=== PATIENT | male | born 1960 | race Caucasian/White ===

== ENCOUNTER 2023-03-25 07:35 | Observation (INO) ==
--- NOTE | 2023-02-26 13:59 | PAT Medication Instructions ---
Medication Instructions Date of Service February 26, 2023 Home Medications clonazepam 2 mg tablet 2 mg PO QPM gabapentin 300 mg capsule 600 mg PO BID lisinopril 10 mg tablet 10 mg PO QAM magnesium oxide 420 mg tablet 420 mg PO Q3D multivitamin 1 tab PO QAM pantoprazole 40 mg tablet,delayed release 40 mg PO QAM zinc 50 mg tablet 50 mg PO QAM peg 400-propylene glycol (PF) 0.4 %-0.3 % eye drops in a dropperette (Systane (PF)) 1 drp ophthalmic (eye) BID DO NOT take the morning of surgery lisinopril 10 mg tablet 10 mg PO QAM magnesium oxide 420 mg tablet 420 mg PO Q3D multivitamin 1 tab PO QAM zinc 50 mg tablet 50 mg PO QAM Take morning of surgery With a small sip of water, OTHERWISE NOTHING TO EAT OR DRINK AFTER MIDNIGHT: gabapentin 300 mg capsule 600 mg PO BID pantoprazole 40 mg tablet,delayed release 40 mg PO QAM peg 400-propylene glycol (PF) 0.4 %-0.3 % eye drops in a dropperette (Systane (PF)) 1 drp ophthalmic (eye) BID Take evening before surgery clonazepam 2 mg tablet 2 mg PO QPM gabapentin 300 mg capsule 600 mg PO BID peg 400-propylene glycol (PF) 0.4 %-0.3 % eye drops in a dropperette (Systane (PF)) 1 drp ophthalmic (eye) BID Other Notes If you have any questions please call us at [phone] or [phone] or [phone] or [phone]
--- NOTE | 2023-03-12 12:04 | Anesthesiology Consultation ---
Date of Service March 12, 2023 Assessment & Plan (1) Encounter for pre-operative examination: - Infectious disease screening: Per assessment on 03/12/23: No known infectious disease contacts or current infectious disease symptoms. No noted recent Covid positive test result. - S/P TURP (10/01/22): LMA#5, atraumatic at [facility]. No issues noted per post-op anesthesia progress note. - Outpatient joint assessment: Pt currently scheduled for inpatient pathway. If surgeon requests review for outpatient joint pathway, patient is an acceptable candidate for outpatient joint program from anesthesia standpoint. - PCP note (02/25/23): "Yes" medically cleared for surgery Chart Review Chart Review: Acceptable Risk for Surgery and Patient seen in Pre Admission Testing Teaching & Discussion Pre-Anesthesia Teaching/Discussion Notes: Instructed NPO after midnight before surgery,except medications with 15 cc of water. Medication instructions provided according to the PAT guidelines. History Surgery Operation Date: 03/25/23 07:00 Proposed Procedures p Right Total Knee Arthroplasty(Right) - Cayden Elizondo MD Height/Weight Height: 5 ft 9 in Weight: 116.6 kg Allergies Allergy/AdvReac Type Severity Reaction Status Date / Time fentanyl [From Duragesic] Allergy Unknown Vomiting Verified 02/25/23 15:27 aspirin AdvReac Unknown History Verified 03/12/23 12:05 bariatric surgery codeine AdvReac Unknown Vomiting Verified 02/25/23 15:27 oxycodone [From OxyContin] AdvReac Unknown Vomiting Verified 02/25/23 15:27 Medications Home Medications Medication Instructions Recorded Confirmed Last Taken clonazepam 2 mg tablet 2 mg PO QPM 08/17/22 02/25/23 09/30/22 20:00 gabapentin 300 mg capsule 600 mg PO BID 08/17/22 02/25/23 10/01/22 06:30 lisinopril 10 mg tablet 10 mg PO QAM 08/17/22 02/25/23 10/01/22 06:30 magnesium oxide 420 mg tablet 420 mg PO Q3D 08/17/22 02/25/23 09/23/22 multivitamin 1 tab PO QAM 08/17/22 02/25/23 09/30/22 08:00 pantoprazole 40 mg tablet,delayed 40 mg PO QAM 08/17/22 02/25/23 10/01/22 06:30 release zinc 50 mg tablet 50 mg PO QAM 09/23/22 02/25/23 09/30/22 08:00 peg 400-propylene glycol (PF) 0.4 1 drp ophthalmic (eye) BID 02/25/23 02/25/23 Unknown %-0.3 % eye drops in a dropperette (Systane (PF)) Past Medical History Medical History Cataracts, bilateral Chronic back pain Dry eye GERD (gastroesophageal reflux disease) Hearing deficit bilateral hearing aids History of back injury HTN (hypertension) Hx of multiple pulmonary nodules 2 pulmonary nodules, under surveillace, CT lungs 02/26/23 PH [place] Migraines hx Obesity Osteoarthritis Retained foreign body shrapnel LLE () Exercise / Class Metabolic Activity II 4-5 Yardwork/Stairs/Walk up hill (one FS (no CP, no SOB)) Past Surgical History Surgical History History of carpal tunnel surgery of right wrist History of colonoscopy History of esophagogastroduodenoscopy (EGD) History of right inguinal hernia repair History of sleeve gastrectomy 10/01/2012 Hx of transurethral resection of prostate 09/2022 [place] teeth extracted Past Anesthesia History No Hx of Anesthesia Complications and No Family Hx of Anesthesia Complications History of PONV No Hx of PONV and No Hx of Motion Sickness Social History Smoking Status: Former smoker tobacco type: cigarettes Smoking cigarettes per day: 8-9 cigs/day Do You Dip or Chew Tobacco: No Smoking End Date: Quit 2003/restarted in 2018, attempting to quit Hx Alcohol Use: Yes alcohol intake frequency: holidays/special occasions only Hx Substance Use: Yes substance use type: marijuana (Occasional) Review of Systems Patient denies chest pain, shortness of breath, dyspnea on exertion, fever, chills, cough, wheezing, palpitations. Physical Exam Vital Signs VITALS BP 138/85 P 56 TEMP 97.9 SP02 96%Ra RESP 18 PHYSICAL Full cervical extension range of motion. Full TMJ range of motion. TMD 4 finger breaths Mallampati Score 1 Dentition: full upper denture, partial lower Lungs: clear throughout to auscultation Cardiac: regular rate and rhythm, no murmurs noted Spine: normal Carotid arteries: negative bruit Extremities: no LE edema Lab Results Anesthesia Preop Results Results Anesthesia Widget: WBC 5.33 K/ul (4.8-10.8) 03/12/23 Hgb 13.8 g/dl (14.0-18.0) L 03/12/23 Hct 41.7 % (42.0-52.0) L 03/12/23 Plt 151 K/uL (130-400) 03/12/23 Na 139 mmol/L (136-145) 03/12/23 K 4.4 mmol/L (3.5-5.1) 03/12/23 Cl 105 mmol/L (98-107) 03/12/23 CO2 30 mmol/L (21-32) 03/12/23 BUN 16 mg/dl (6-23) 03/12/23 Creat 0.73 mg/dl (0.6-1.4) 03/12/23 Glucose Level 84 mg/dl (70-99(Fasting)) 03/12/23 PT 10.6 Seconds (9.0-12.0) 03/12/23 PTT 32 Seconds (21-31) H 03/12/23 INR 1.0 (0.9-1.1) 03/12/23 Urine Color Yellow 03/12/23 Urine Appearance Clear (Clear) 03/12/23 Urine pH 7.0 (4.5-7.5) 03/12/23 Urine Specific [place] 1.021 (1.000-1.030) 03/12/23 Urine Protein Negative (Negative) 03/12/23 Urine Glucose (UA) Negative (Negative) 03/12/23 Urine Ketones Negative (Negative) 03/12/23 Urine Blood Negative (Negative) 03/12/23 Urine Nitrite Negative (Negative) 03/12/23 Urine Bilirubin Negative (Negative) 03/12/23 Urine Urobilinogen Negative (Negative) 03/12/23 Urine Leukocyte Esterase Negative (Negative) 03/12/23 Blood Type O Positive 03/12/23 Antibody Screen NEGATIVE 03/12/23 Testing Electrocardiogram Date: 02/25/23 NSR at 70bpm. LAD. Chest X-Ray Date: 09/22/22 Findings: + NAD Other Testing CT chest Date: 02/26/23 Multiple very small (3 mm or less) bilateral pulmonary nodules and a remote granuloma on the left. Calcified coronary artery plaque. "Recommend follow-up with low-dose CT in 12 months"
--- NOTE | 2023-03-12 12:08 | History & Physical Report ---
Date of Service March 12, 2023 Assessment & Plan (1) Osteoarthritis of right knee: Plan: PRE-OP Diagnosis: Right knee osteoarthritis Planned Procedure: Right total knee arthroplasty Plan: Patient is scheduled to undergo this procedure at the [facility] with Dr. Elizondo on , March 25, 2023. Risks and complications of the procedure such as: Infection, bleeding, pain, scarring, nerve blood vessel damage, weakness, wound problems, stiffness, incomplete relief of symptoms, hardware failure, hardware loosening, wear, fracture, tendon or ligament injury, blood clots, embolism, cardiac, stroke and were explained to the patient at his visit today and informed consent for the procedure was obtained. Patient also understands risks of proceeding with surgical intervention during the COVID-19 pandemic. Currently he is asympto matic and states that he has not been in contact with anyone positive for the virus recently. We have obtained preoperative medical clearance from the patient's primary care provider. Patient is scheduled to meet with anesthesia at the hospital this afternoon. While there he will obtain a CBC with differential, complete metabolic panel, PT/INR, blood type and screen, urinalysis, urine culture and sensitivity, EKG and a nasal culture for MRSA. During today's visit we reviewed the total knee packet. I provided the patient with paperwork to obtain obtaining a handicap placard for his vehicle. I provided him with information about lectures offered by [facility] in regards to joint replacement surgery. I provided him with an order to obtain a walker. I recommended that he purchase a shower chair and raised toilet seat. We discussed discharge planning from the hospital. Patient states he will most likely do in-home physical therapy for the first 2 weeks before tr ansitioning to outpatient physical therapy. I advised the patient that he will be provided with a prescription for narcotic pain medication for postoperative pain control. We will have him on aspirin twice daily for the first 30 days postoperatively for blood clot prevention. Patient be scheduled for 2-week postoperative follow-up visit with April 07, 2023. This chart was completed utilizing [employer] voice recognition software. Grammatical errors, random word insertions, pronoun errors, and in complete sentences are an occasional consequence of the system. Any questions or con cerns about the content, text, or information contained within the body of this dictation should be addressed directly to the physician for clarification. History of Present Illness Chief Complaint: Chief Complaint: Right knee pain Primary Care Provider: Marco Pierre MD History of Present Illness (including history relevant to procedure): This 63-year-old male presents to the clinic today for his preoperative history and physical. Patient has a longstanding history of bilateral knee pain with the right being greater than the left. Patient states that he has had arthroscopic surgery on the knee a few years ago for meniscus tear. He states that since that time he has had corticosteroid injections and viscosupplementation without significant relief of symptoms. Patient is an avid berkley and hide current states that he has been unable to do these things over the past 6 months due to the pain that he experiences. He states that at times pain radiates into his back causing him to have significant pain in the lumbar spine. He also states that his gait has been affected and notices that his left knee has been getting a little worse as of late. Due to failing conservative management patient is electing to proceed with surgical invention at this time. Review Of Systems: 12 point review of systems warmed and is unremarkable except for those things stated in the HPI and past medical history. Past Medical History: Problems: High blood pressure Osteoarthritis of knees, bilateral Knee pain Migraine headache Sleep apnea with CPAP use Procedure History Procedure Procedure Date Comments History of knee surgery - left Carpal tunnel release IH - Inguinal hernia - right Gastric sleeve 2012 Allergies and Sensitivities: codeine(Confused) Current Home Meds: (Last Updated 03/12 10:42) HYDROcodone 5/325 as needed when he can't bear it acetaminophen prn calcium carbonate (calcium (as carbonate) 600 mg oral tablet) cholecalciferol (Vitamin D3) every other day clonazePAM 2 mg PO qhs gabapentin lisinopril 5 mg PO Daily magnesium oxide PO Daily multivitamin 1 tab PO Daily pantoprazole PO Daily sodium hyaluronate (Euflexxa 10 mg/mL intra-articular solution) 20 mg intra- articular q7days 6 syringes for B/L knees. Please ship to physician's office: [id number] [place] [address] zinc sulfate (Zinc) and magnesium Allergies Allergy/AdvReac Type Severity Reaction Status Date / Time fentanyl [From Duragesic] Allergy Unknown Vomiting Verified 02/25/23 15:27 aspirin AdvReac Unknown History Verified 03/12/23 12:05 bariatric surgery codeine AdvReac Unknown Vomiting Verified 02/25/23 15:27 oxycodone [From OxyContin] AdvReac Unknown Vomiting Verified 02/25/23 15:27 Home Medications Medication Instructions Recorded Confirmed Type clonazepam 2 mg tablet 2 mg PO QPM 08/17/22 02/25/23 History gabapentin 300 mg capsule 600 mg PO BID 08/17/22 02/25/23 History lisinopril 10 mg tablet 10 mg PO QAM 08/17/22 02/25/23 History magnesium oxide 420 mg tablet 420 mg PO Q3D 08/17/22 02/25/23 History multivitamin 1 tab PO QAM 08/17/22 02/25/23 History pantoprazole 40 mg tablet,delayed 40 mg PO QAM 08/17/22 02/25/23 History release zinc 50 mg tablet 50 mg PO QAM 09/23/22 02/25/23 History peg 400-propylene glycol (PF) 0.4 1 drp ophthalmic (eye) BID 02/25/23 02/25/23 History %-0.3 % eye drops in a dropperette (Systane (PF)) Past Med/Surg History Medical History Cataracts, bilateral Chronic back pain Dry eye GERD (gastroesophageal reflux disease) Hearing deficit bilateral hearing aids History of back injury HTN (hypertension) Hx of multiple pulmonary nodules 2 pulmonary nodules, under surveillace, CT lungs 02/26/23 PH [place] Migraines hx Obesity Osteoarthritis Retained foreign body shrapnel LLE () Surgical History History of carpal tunnel surgery of right wrist History of colonoscopy History of esophagogastroduodenoscopy (EGD) History of right inguinal hernia repair History of sleeve gastrectomy 10/01/2012 Hx of transurethral resection of prostate 09/2022 [place] teeth extracted Social History Smoking Status: Former smoker Tobacco Type: Cigarettes Cigarettes Per Day: 8-9 cigs/day; Second Hand Exposure: Yes (hx); Do You Dip or Chew Tobacco: No; Hx Alcohol Use: Yes Hx Substance Use: Yes Last Used Substance Other:: remote hx-regular use Preferred Language: Irish Communication Ability: Effective Bottom Sprayer Required: No Beliefs That Will Affect Care: None Current Living Situation: Spouse Feels Safe at Home: Yes Assistive Devices: Denture - Upper, Denture - Lower, Glasses and Hearing Aid - Bilateral Review of Systems All systems reviewed & are unremarkable except as noted in Subjective Physical Exam Physical Exam: Physical Exam: (relevant to the procedure, including heart and lung evaluation) General: Alert and oriented x 3 with proper grooming and hygiene Eyes: Pupils are equal and reactive to light with accommodation. Extraocular movements are intact Throat: Posterior oropharynx clear with absence of edema, erythema or exudate. Patient has dentures in the upper palate and a partial in the lower. Cardiac: Regular rate and rhythm with no murmurs or gallops appreciated Lungs: Coarse breath sounds throughout with no wheezing, rales or rhonchi Abdomen: Obese, nondistended, nontender with NABS Extremities: Right knee: Range of motion is from 10 degrees of extension 110 degrees of flexion. There is audible crepitation with passive range of motion. Patient experiences medial joint line tenderness when the knees are palpated in the flexed position. He has visible varus malalignment of the right knee but his left knee appears straight. I was unable to manipulate his patella due to arthritic change within the supplementally. There is no laxity with varus or valgus stressing. AP drawer and Justice test are negative. Patient is neurovascularly intact in both lower extremities. Neuro: Cranial nerves II through XII are intact no motor or sensory deficit Skin: Normal in appearance with no open skin areas or discharge Results & Data Diagnostic Findings Studies (relevant to the procedure): 4 views of thebilateral knees which shows interval joint space loss in the medial compartment, near bone on bone arthritis in the right knee. The left knee shows minimal joint space narrowing. Enthesophyte still noted off the right patella. Compared to films done 1 year ago.
[~2023-03-25 07:35] MED LIST: ACETAMINOPHEN 500 MG TAB PO SCH; CeleBREX 200 MG CAP PO SCH; FAMOTIDINE 20 MG TAB PO SCH; LR 500ML BOLUS, THEN 15ML/HR IV SCH; LR 60ML/HR IV SCH; ROPIVACAINE 0.5% 5 MG/ML 30 ML VIAL ONE; ROPIVACAINE 0.5% HCL/PF 246 MG, Ketorolac (*for OR use only*) 30 MG, EPINEPHrine 30MG/3... INFIL SCH; Scopolamine 1 MG TDSY TD SCH; TRANEXAMIC ACID 1,000 MG **IV Intra-op IV SCH; TRANEXAMIC ACID 1,000 MG **IV Pre-op IV SCH; ceFAZolin 2000MG 2,000 MG/15 ML SYR IV SCH; dexAMETHasone**PF** 10 MG/ML VIAL IV SCH; traMADol HCL 50 MG TABLET PO SCH
[2023-03-25] MEDS ORDERED: MIDAZOLAM HCL 1 MG/ML 2ML VIAL ONE (08:15)
[2023-03-25] MEDS ORDERED: PROPOFOL IV EMULSION 10 MG/ML 20 ML VIAL IV ONE ×2 (08:22→10:22)
[2023-03-25] MEDS ORDERED: LIDOCAINE 2% 2 ML VIAL/AMP(20MG/ML) INFIL ONE ×2 (08:22→11:34)
--- NOTE | 2023-03-25 08:37 | History & Physical Bridge Note ---
Date of Service March 25, 2023 History & Physical Bridge Note I have examined the patient, reviewed the History & Physical and in the interval since the performance of the History & Physical I have noted the following changes of clinical significance: no changes noted
[2023-03-25] MEDS ORDERED: fentaNYL citrate PF 100 MCG/2 ML VIAL IV PRN (08:39)
[2023-03-25] MEDS ORDERED: ePHEDrine sulfate 50 MG/ML AMP IV PRN (08:39)
[2023-03-25] MEDS ORDERED: ONDANSETRON INJ 2 MG/ML 2 ML VIAL IV PRN ×2 (08:39→10:50)
[2023-03-25] MEDS ORDERED: HYDROmorphone INJ 2 MG/ML SYR/VIAL IV PRN (08:39)
[2023-03-25] MEDS ORDERED: ATROPINE SULFATE 0.1 MG/ML 10ML SYR IV PRN (08:39)
[2023-03-25] MEDS ORDERED: ORTHO JOINT ANESTHETIC ONE (08:47)
[2023-03-25] MEDS ORDERED: TAMSULOSIN HCL 0.4 MG CAP PO PRN (10:50)
[2023-03-25] MEDS ORDERED: diphenhydrAMINE 50 MG/ML VIAL IV PRN (10:50)
[2023-03-25] MEDS ORDERED: NALOXONE HCL 0.4 MG/1 ML VIAL/CARP IV PRN (10:50)
[2023-03-25] MEDS ORDERED: MAGNESIUM HYDROXIDE SUSP 30 ML UDC PO PRN (10:50)
[2023-03-25] MEDS ORDERED: METOCLOPRAMIDE HCL INJ 5 MG/ML 2 ML VIAL IV PRN (10:50)
[2023-03-25] MEDS ORDERED: bisacodyL 10 MG SUPP PR PRN (10:50)
[2023-03-25] MEDS ORDERED: HYDROmorphone INJ 0.5 MG/0.5 ML SYR IV PRN (10:50)
--- NOTE | 2023-03-25 10:50 | Operative Report ---
Post Operative Report Pre & Post Diagnosis Operation Date: 03/25/23 09:10 Pre-Op Diagnosis: Right Knee Osteoarthritis Post-Op Diagnosis: Right Knee Osteoarthritis I identified the patient and participated in the time-out.: Yes Procedure Operation Date: 03/25/23 09:10 Actual Procedures p Right Total Knee Arthroplasty(Right) - Cayden Elizondo MD Surgeon Cayden Elizondo MD Leaf Stripper Uriah Trejo PA-Jaerd Estimated Blood Loss 100 Findings Consistent with Post-Op Diagnosis Specimens Right knee bone and soft tissue Description of Procedure I was present during the entire case assisting with positioning, prepping, draping, wound retraction, wound closure, and dressing application. No fellow present. Please see Dr. Elizondo procedure note for specifics of the case. I attest to the content of the Intraoperative Record and any orders documented therein. Any exceptions are noted below.
--- NOTE | 2023-03-25 10:55 | Operative Report ---
Post Operative Report Pre & Post Diagnosis Operation Date: 03/25/23 09:10 Pre-Op Diagnosis: Right Knee Osteoarthritis Post-Op Diagnosis: Right Knee Osteoarthritis I identified the patient and participated in the time-out.: Yes Procedure Operation Date: 03/25/23 09:10 Actual Procedures p Right Total Knee Arthroplasty(Right) - Cayden Elizondo MD Surgeon Cayden Elizondo MD [employer] Lieutenant YESENIA Trejo PA-C. No resident or fellow was available to assist. Estimated Blood Loss 100 Findings Consistent with Post-Op Diagnosis Specimens Right knee bone and soft tissue contents. Anesthesia Type Spinal MAC Complications none Disposition Disposition: Recovery Room Indications 63-year-old male with right knee osteoarthritis refractory to conservative management. X-rays demonstrate joint space narrowing, marginal osteophytes, and subchondral sclerosis. I had a long discussion with him about the risks and benefits of surgery, alternatives to surgery, and expected outcomes. After reviewing all these he elected to proceed. All questions were answered. Informed consent was signed. Description of Procedure Patient was identified in the preoperative holding area where the surgical site, right knee, was marked. Spinal anesthetic was placed by anesthesia. Patient was brought back to the operating room, placed on the operating room table, and IV sedation was administered. A bump was placed underneath the ipsilateral hip. All bony prominences were padded. Perioperative antibiotics and tranexamic acid were administered. Exam under anesthesia was performed. This demonstrated range of motion 0 to 110 degrees, stable to varus and valgus at 0 and 30 degrees. The surgical site was prepped and draped in the normal sterile fashion. Prior to incision a multidisciplinary timeout was called. All in the room were in agreement. We began by exsanguinating the limb with an Esmarch bandage. Tourniquet was inflated to 250 mmHg. A 14 cm long incision was made over the anterior aspect of the knee. I dissected through the subcutaneous tissues to the level of the fascia. Full-thickness flaps were raised above the fascia. A median parapatellar arthrotomy was made. Half the fat pad was excised. A medial release was performed with Bovie electrocautery on the proximal tibia. Synovitis in the knee and suprapatellar pouch was removed. The patella was then everted and held with 2 towel clips. The thickness of the patella was measured at 25 mm. Patellar resection was performed. Caliper showed the patella thickness now to be 15 mm. A size 41 trial was placed and mckeon d a great fit. The 3 drill holes were placed then the trial button was placed. The patellar thickness was now 25 mm which I was very happy with. The patellar trial was then removed, and the knee was flexed up. Retractors were placed to protect the MCL and LCL. Osteophytes were removed from the femoral condyles and intercondylar notch. The ACL and PCL were excised. Intramedullary drill guide was drilled into the femur. Distal femoral cutting guide was placed set at 5 degrees of valgus to resect 10 mm off the distal femur. Distal femoral resection was made without difficulty. The tibia was then exposed. The lateral meniscus was sharply excised. The tibial cutting jig was positioned in line with the tibial shaft in the coronal plane and with 3 degrees of posterior slope in the sagittal plane to resect 5 mm off the more involved compartment. The jig was then pinned in position and the tibial cut was made. We then brought the knee into full extension. Lamina spreaders were placed. The medial meniscus was excised. The extension block was then placed for 5 mm thickness poly. This gave us full extension and excellent stability to varus and valgus stress. Next the extension block was removed, the knee was flexed up, collateral ligaments were protected, and the epicondylar axis and Whitesides line were marked out on the distal femoral cut. Femoral sizing guide was placed. External rotation was set at 5 degrees so that the posterior cut would be parallel with the epicondylar axis and perpendicular with Whitesides line. The patient sized to a size 7 femur. 2 pins were then placed through the jig into the distal femur. The jig was removed and the appropriately sized 4-in-1 cutting jig was placed over the pins, then fixated to the bone using threaded, headed pins. We confirmed that we would not notch the femur with our anterior cut. Our 4 cuts were then made. The cutting jig was removed. The flexion block was then placed with the knee held at 90 degrees. There was excellent stability to varus and valgus at 90 degrees with no gapping medially or laterally. Next the box cutting jig was placed on the distal femur. The box cut was made and the femoral trial was impacted into position. Lug holes were drilled in the distal femur. We then reexposed the tibia. The tibia was sized to a 7 for a fixed-bearing component. The tibial tray with a 5 mm thickness polyethylene liner was placed on the cut tibial surface and the knee was brought through a full range of motion. There was excellent stability to varus valgus stress throughout a full range of motion, which was approximately 0-125 degrees. Bovie electrocautery was used to zulay the tibia at the site where the tibial tray rested in full extension. We then flexed up the knee, removed the polyethylene liner, and pinned the tibial tray into position to match the cautery zulay. The intramedullary drill followed by the keel punch were used to prepare the tibia. Next the trial components were removed. I then injected the posterior capsule and periosteum with the periarticular injection cocktail. The bone cuts were then irrigated and dried while the cement was mixed on the back table. The femoral component was cemented on first. Excess cement was removed. A lap sponge was placed over the femoral component for protection, then the tibia was subluxated anteriorly. The all polyethylene tibial component was then cemented in place. Again excess cement was removed. The knee was brought into full extension and held there until the cement cured. The patella was cemented and clamped. Dilute Betadine solution was then allowed to soak in the knee while the cement cured. Once the cement was fully cured, the knee was irrigated out, the tourniquet was let down and meticulous hemostasis was ensured. The knee was brought through a full range of motion. I was were very happy with the patella tracking and the stability. We then began to close. Interrupted 0 Vicryl suture was used to repair the patellar retinaculum in [id number] fashion. The quadriceps and patellar tendons were run with #1 Vicryl. The deep dermal layer was closed with interrupted 2-0 Vicryl. D ermabond and Zipline was used for the skin, followed by a Silverlon dressing. A compressive Jakob wrap was placed and the knee was placed into a knee immobilizer. Patient's sedation was lifted and was transferred to recovery room in stable condition. Summary of implants: Depuy Attune Posterior Stabilized Cemented Femur, size 7 right Attune All-polyethylene tibial component, posterior stabilized 5 mm thickness, size 7 Attune patella medialized dome, size 41 2 batches of Palacos high viscosity bone cement Postoperative course: Patient will be admitted to the floor for pain control and monitoring. Weightbearing as tolerated with a walker with no knee range of motion for 48 hours. Aspirin for DVT prophylaxis. I attest to the content of the Intraoperative Record and any orders documented therein. Any exceptions are noted below.
--- NOTE | 2023-03-25 11:14 | XRay Report ---
XR knee RT 1 or 2V routine CLINICAL HISTORY: Surgical Post Op TECHNIQUE: 2 views of the right knee were obtained. Comparison: Comparison is made to right knee radiograph 03/12/2023 FINDINGS: Patient is status post total knee arthroplasty with expected postsurgical changes including soft tiss ue swelling and subcutaneous emphysema. No periarticular lucency or hardware fracture is seen. IMPRESSION: Expected postoperative appearance status post placement of total knee arthroplasty. ACT 112: Negative or not required by law. Electronically signed by: Noha Lozano M.D. 03/25/2023 11:13 AM
--- NOTE | 2023-03-25 12:11 | Anesthesiology Progress Note ---
Date of Service March 25, 2023 Anesthesia Post Procedure Vital Signs Vital Signs: Temp Pulse Resp BP BP Pulse Ox O2 Del Method 03/25/23 11:55 55 L 16 126/73 95 Room Air 03/25/23 11:40 49 L 18 142/81 H 94 Room Air 03/25/23 11:25 56 L 16 138/82 95 Room Air 03/25/23 11:10 36.6 C 60 15 100/61 92 Room Air 03/25/23 11:00 57 L 16 95/67 L 99 Room Air 03/25/23 10:50 36.0 C L 54 L 17 92/51 L 98 Oxymask 03/25/23 08:35 Room Air 03/25/23 08:00 36.7 C 66 20 159/105 H 96 Room Air O2 Flow Rate 03/25/23 11:55 03/25/23 11:40 03/25/23 11:25 03/25/23 11:10 03/25/23 11:00 03/25/23 10:50 6 03/25/23 08:35 03/25/23 08:00 Pain Intensity Right Knee: Pain Intensity: 0 Transfer of Care Handoff Completed per policy Notes Mental Status: alert / awake / arousable and participated in evaluation Patient Amnestic to Procedure: Yes Nausea / Vomiting: adequately controlled Pain: adequately controlled Airway Patency, RR, SpO2: stable & adequate BP & HR: stable & adequate Hydration State: stable & adequate Neuraxial Anesthesia: was administered and sensory block is resolving Anesthetic Complications: no major complications apparent and Pt Satisfied with anesthetic care
[2023-03-25] MEDS: SODIUM CHLORIDE 0.9% 1,000 ML IV SCH ×2 (12:51→21:01)
[2023-03-25] MEDS: KETOROLAC TROMETHAMINE 15 MG/ML VIAL IV SCH ×2 (13:36→18:32)
[2023-03-25] MEDS: ACETAMINOPHEN 500 MG TAB PO SCH ×2 (13:38→20:54)
[2023-03-25] MEDS: Scopolamine CHECK PATCH PLACEMENT SCH (16:58)
[2023-03-25] MEDS: ceFAZolin 2000MG 2,000 MG/15 ML SYR IV SCH (16:59)
[2023-03-25] MEDS ORDERED: TRANEXAMIC ACID / 0.7% NACL 1,000 MG/100 ML BAG IV SCH (17:00)
[2023-03-25] MEDS: GABAPENTIN 600 MG TAB PO SCH (20:53)
[2023-03-25] MEDS: DOCUSATE SODIUM 100 MG CAP PO SCH (20:54)
[2023-03-25] MEDS: ARTIFICIAL TEARS OP SCH (20:58)
[2023-03-25] MEDS ORDERED: clonazePAM 1 MG TAB PO SCH (21:00)
[2023-03-25] MEDS ORDERED: SENNA 8.6 MG TAB PO SCH (21:00)
[2023-03-25] MEDS: traMADol HCL 50 MG TABLET PO PRN (23:31)
[2023-03-26] MEDS: ceFAZolin 2000MG 2,000 MG/15 ML SYR IV SCH (01:52)
[2023-03-26] MEDS: KETOROLAC TROMETHAMINE 15 MG/ML VIAL IV SCH ×2 (01:52→07:53)
[2023-03-26] MEDS: ACETAMINOPHEN 500 MG TAB PO SCH (05:03)
[2023-03-26 06:08] LABS: Hematocrit (blood only) 38.2 % (42.0-52.0); Hemoglobin 13.1 g/dl (14.0-18.0); Mean Corpuscular Hgb Conc 34.3 g/dL (32.0-36.0); Mean Corpuscular Volume 84.5 fL (80.0-100.0); Mean Platelet Volume 11.2 fL (9.4-12.4); Platelet Count 159 K/uL (130-400); RDW Coefficient of Variation 12.2 % (11.5-14.5); RDW Standard Deviation 37.3 fL (36.4-46.3); Red Blood Count 4.52 M/uL (4.70-6.10); White Blood Count 13.14 K/ul (4.8-10.8)
[2023-03-26 06:17] LABS: BUN Creatinine Ratio 28.4 (10-20); Calcium 8.6 mg/dl (8.6-10.3); Creatinine Clr Calc Pharmacy 139.3 ml/min; Est GFR (African American) 119.4 ml/min; Potassium 4.3 mmol/L (3.5-5.1)
[2023-03-26] MEDS: Scopolamine CHECK PATCH PLACEMENT SCH ×2 (07:54)
[2023-03-26] MEDS: ARTIFICIAL TEARS OP SCH (07:55)
[2023-03-26] MEDS: GABAPENTIN 600 MG TAB PO SCH (07:58)
[2023-03-26] MEDS ORDERED: dexAMETHasone 4 MG TAB PO SCH (08:00)
[2023-03-26] MEDS: DOCUSATE SODIUM 100 MG CAP PO SCH (08:16)
[2023-03-26] MEDS ORDERED: MULTIVITAMIN TAB PO SCH (09:00)
[2023-03-26] MEDS ORDERED: ZINC SULFATE 220 MG CAPSULE PO SCH (09:00)
[2023-03-26] MEDS ORDERED: PANTOprazole 40 MG TAB PO SCH (09:00)
[2023-03-26] MEDS ORDERED: [UNRECOGNIZED DRUG - OTHER] PO SCH (09:00)
[2023-03-26] MEDS ORDERED: MAGNESIUM OXIDE 400 MG TAB PO SCH (09:00)
[2023-03-26] MEDS ORDERED: NON-FORMULARY MEDICATION (Multivitamin tablet) PO SCH (09:00)
[2023-03-26] MEDS ORDERED: lisinopril 10 MG TAB PO SCH (09:00)
[2023-03-26] MEDS ORDERED: RIVAROXABAN 10 MG TABLET PO SCH (09:00)
[2023-03-26] MEDS: traMADol HCL 50 MG TABLET PO PRN (10:44)
--- NOTE | 2023-03-26 10:46 | Orthopedic Progress Note ---
Date of Service March 26, 2023 Assessment & Plan (1) S/P total knee arthroplasty: Plan: PT/OT Ice with easy wrap DVT prophylaxis with Xarelto and NANCY stockings Pain control with p.o. medication Immobilizer use x 48 hours Weightbearing as tolerated with walker assistance Plan is to discharge home later this morning with in-home physical therapy for the first 2 weeks postoperatively Keep Silverlon dressing in place until follow-up Follow-up at [facility] orthopedics as previously scheduled With questions contact our clinic at [phone] Admission and Anticipated Discharge Date Admission Date: March 25, 2023 Subjective This 63-year-old male is day 1 status post right total knee arthroplasty. Patient states that he is doing very well. He states that his pain is effectively controlled with the p.o. pain medication he was given. He has been up ambulating with physical therapy without significant discomfort. Patient hop es to be discharged home later this morning. He is already established with in- home physical therapy. Currently he denies chest pain, shortness of breath, fever, chills, sweats or numbness or tingling in his right lower extremity. He also has no complaint of nausea, vomiting, difficulty voiding or diarrhea. Review of Systems Review of Systems: All systems reviewed & are unremarkable except as noted in Subjective Physical Exam Physical Exam: Right knee: Outer dressing was removed. Silverlon is clean dry and intact and left in place. Patient is able to perform an active straight leg raise test. He is able to actively dorsi and plantarflex his foot. Active knee range of motion is from 0 degrees of extension to approximately 90 degrees of flexion. There is moderate edema and tenderness to palpation. There is also some noted ecchymosis at the tourniquet site. Otherwise patient is neurovascularly intact. His quad strength is 4-5. Results & Data Vital Signs (Past 12 Hours) Vital Signs Temp Pulse Resp BP Pulse Ox O2 Del Method 03/26/23 07:16 36.3 C L 56 L 16 121/74 95 Room Air 03/26/23 05:00 36.5 C 56 L 18 137/77 94 Room Air 03/26/23 01:29 36.3 C L 54 L 16 134/75 95 Room Air Diagnostic Findings Laboratory Results WBC 13.14 K/ul (4.8-10.8) H 03/26/23 05:19 RBC 4.52 M/uL (4.70-6.10) L 03/26/23 05:19 Hgb 13.1 g/dl (14.0-18.0) L 03/26/23 05:19 Hct 38.2 % (42.0-52.0) L 03/26/23 05:19 MCV 84.5 fL (80.0-100.0) 03/26/23 05:19 MCH 29.0 pg (25.0-34.0) 03/26/23 05:19 MCHC 34.3 g/dL (32.0-36.0) 03/26/23 05:19 RDW Std Deviation 37.3 fL (36.4-46.3) 03/26/23 05:19 RDW Coeff of Brunilda 12.2 % (11.5-14.5) 03/26/23 05:19 Plt Count 159 K/uL (130-400) 03/26/23 05:19 MPV 11.2 fL (9.4-12.4) 03/26/23 05:19 Sodium 136 mmol/L (136-145) 03/26/23 05:19 Potassium 4.3 mmol/L (3.5-5.1) 03/26/23 05:19 Chloride 106 mmol/L (98-107) 03/26/23 05:19 Carbon Dioxide 22 mmol/L (21-32) 03/26/23 05:19 Anion Gap 8 (3-11) 03/26/23 05:19 BUN 19 mg/dl (6-23) 03/26/23 05:19 Creatinine 0.67 mg/dl (0.6-1.4) 03/26/23 05:19 Est Cr Clr Drug Dosing 139.3 ml/min 03/26/23 05:19 Est GFR ( Amer) 119.4 ml/min 03/26/23 05:19 Est GFR (Non-Af Amer) 103.0 ml/min 03/26/23 05:19 BUN/Creatinine Ratio 28.4 (10-20) H 03/26/23 05:19 Glucose 105 mg/dl (70-99(Fasting)) H 03/26/23 05:19 Calcium 8.6 mg/dl (8.6-10.3) 03/26/23 05:19 Impressions Knee X-Ray 03/25/23 10:50 XR knee RT 1 or 2V routine CLINICAL HISTORY: Surgical Post Op TECHNIQUE: 2 views of the right knee were obtained. Comparison: Comparison is made to right knee radiograph 03/12/2023 FINDINGS: Patient is status post total knee arthroplasty with expected postsurgical changes including soft tissue swelling and subcutaneous emphysema. No periarticular lucency or hardware fracture is seen. IMPRESSION: Expected postoperative appearance status post placement of total knee arthroplasty. ACT 112: Negative or not required by law. Electronically signed by: Noah Lozano M.D. 03/25/2023 11:13 AM
--- NOTE | 2023-03-26 10:51 | Discharge Summary ---
Date of Service March 26, 2023 Admission HPI Per Admitting Provider History of Present Illness (including history relevant to procedure): This 63-year-old male presents to the clinic today for his preoperative history and physical. Patient has a longstanding history of bilateral knee pain with the right being greater than the left. Patient states that he has had arthroscopic surgery on the knee a few years ago for meniscus tear. He states that since that time he has had corticosteroid injections and viscosupplementation without significant relief of symptoms. Patient is an avid berkley and hide current states that he has been unable to do these things over the past 6 months due to the pain that he experiences. He states that at times pain radiates into his back causing him to have significant pain in the lumbar spine. He also states that his gait has been affected and notices that his left knee has been getting a little worse as of late. Due to failing conservative management patient is electing to proceed with surgical invention at this time. Review Of Systems: 12 point review of systems warmed and is unremarkable except for those things stated in the HPI and past medical history. Past Medical History: Problems: High blood pressure Osteoarthritis of knees, bilateral Knee pain Migraine headache Sleep apnea with CPAP use Procedure History Procedure Procedure Date Comments History of knee surgery - left Carpal tunnel release IH - Inguinal hernia - right Gastric sleeve 2012 Allergies and Sensitivities: codeine(Confused) Current Home Meds: (Last Updated 03/12 10:42) HYDROcodone 5/325 as needed when he can't bear it acetaminophen prn calcium carbonate (calcium (as carbonate) 600 mg oral tablet) cholecalciferol (Vitamin D3) every other day clonazePAM 2 mg PO qhs gabapentin lisinopril 5 mg PO Daily magnesium oxide PO Daily multivitamin 1 tab PO Daily pantoprazole PO Daily sodium hyaluronate (Euflexxa 10 mg/mL intra-articular solution) 20 mg intra- articular q7days 6 syringes for B/L knees. Please ship to physician's office: [address] [place] [id number] zinc sulfate (Zinc) and magnesium Admission Exam Per Admitting Provider Physical Exam: (relevant to the procedure, including heart and lung evaluation) General: Alert and oriented x 3 with proper grooming and hygiene Eyes: Pupils are equal and reactive to light with accommodation. Extraocular movements are intact Throat: Posterior oropharynx clear with absence of edema, erythema or exudate. Patient has dentures in the upper palate and a partial in the lower. Cardiac: Regular rate and rhythm with no murmurs or gallops appreciated Lungs: Coarse breath sounds throughout with no wheezing, rales or rhonchi Abdomen: Obese, nondistended, nontender with NABS Extremities: Right knee: Range of motion is from 10 degrees of extension 110 degrees of flexion. There is audible crepitation with passive range of motion. Patient experiences medial joint line tenderness when the knees are palpated in the flexed position. He has visible varus malalignment of the right knee but his left knee appears straight. I was unable to manipulate his patella due to arthritic change within the supplementally. There is no laxity with varus or valgus stressing. AP drawer and Justice test are negative. Patient is neurovascularly intact in both lower extremities. Neuro: Cranial nerves II through XII are intact no motor or sensory deficit Skin: Normal in appearance with no open skin areas or discharge Principal Diagnosis Right knee osteoarthritis Discharge Exam Right knee: Outer dressing was removed. Silverlon is clean dry and intact and left in place. Patient is able to perform an active straight leg raise test. He is able to actively dorsi and plantarflex his foot. Active knee range of motion is from 0 degrees of extension to approximately 90 degrees of flexion. There is moderate edema and tenderness to palpation. There is also some noted ecchymosis at the tourniquet site. Otherwise patient is neurovascularly intact. His quad strength is 4-5. Discharge Data Allergies Allergy/AdvReac Type Severity Reaction Status Date / Time fentanyl [From Duragesic] Allergy Unknown Vomiting Verified 03/25/23 08:23 [facility] Allergy hives, Verified 03/25/23 08:23 throat swelling aspirin AdvReac Unknown History Verified 03/25/23 08:23 bariatric surgery codeine AdvReac Unknown Vomiting Verified 03/25/23 08:23 oxycodone [From OxyContin] AdvReac Unknown Vomiting Verified 03/25/23 08:23 Procedures Performed Operation Date: 03/25/23 09:10 Actual Procedures p Right Total Knee Arthroplasty(Right) - Cayden Elizondo MD Ordered Studies 03/25/23 05:00 US - OR guided needle placemen Routine Hospital Course (1) S/P total knee arthroplasty: Patient had an uneventful overnight stay following right total knee arthroplasty. He is scheduled to begin physical therapy sometime this weekend at home. He is very pleased with the results of his surgery. PT/OT Ice with easy wrap DVT prophylaxis with Xarelto and NANCY stockings Pain control with p.o. medication Immobilizer use x 48 hours Weightbearing as tolerated with walker assistance Plan is to discharge home later this morning with in-home physical therapy for the first 2 weeks postoperatively Keep Silverlon dressing in place until follow-up Follow-up at [facility] orthopedics as previously scheduled With questions contact our clinic at [phone] Total Time Total Time Spent Total Time Spent (In Minutes): 25 mins Discharge Plan Discharge Items Patient Disposition: Home - Home Health Services Reason For Visit: Right Knee Osteoarthritis Discharge Diagnosis: Right Knee Osteoarthritis Activity: As commented below Lifting: None Bathing: Keep incision dry Bathing Comment: May shower tomorrow Sexual Activity: Wait until after follow-up appointment Exercise/Sports: Wait until after follow-up appointment Weightbearing Comment: as tolerated with walker assistance and immobilizer for first 48 hrs Non-emergency contact: Surgeon Call non-emergency contact if: you have any medication questions, your pain is not controlled, your temperature is above 101.5 and your wound has increased drainage Follow-up/Referrals: Marco Pierre MD [Primary Care Provider] - Diet: Regular Addtl Attending Provider Instructions: Post-operative Instructions Dear Patient and Family/Friends, Before you are discharged from the hospital, it is important to know what to expect when you get home after surgery. To that end, we have created this sheet of discharge instructions which covers many commonly asked questions. Make sure you go through this sheet in its entirety with your nurse before you are discharged. Please note that we will go over the specifics of your surgery and recovery when you return for your first post-operative visit. Sincerely, Dr. Elizondo Medications 1. Xarelto 10 mg: Take 1 tablet daily for the first 21 days postoperatively for blood clot prevention. This prescription will be sent to your pharmacy. 2. Braxton 5/325 mg: Take 1-2 tabs every 4-6 hours as needed for postoperative pain control. This will also be sent to your pharmacy. 3. Diclofenac sodium 75 mg: Take 1 tab twice daily for the first 30 days postoperatively for postoperative pain and inflammation relief. This will be sent to your pharmacy. Pain Expect to be in a fair amount of pain after surgery. Remember, our goal is not to eliminate your pain, but to make it tolerable. It is a good idea to stay ahead of your pain by taking the medications you were prescribed once you get home. Typically, the pain starts improving 3-7 days after surgery. You should start weaning off the narcotic pain medication (oxycodone, hydrocodone, hydromorphone, morphine) as soon as your pain improves. Please call our office if your pain is not adequately controlled. Ice Ice your operative site at least 5 times a day for 15-30 minutes at a time. Make sure you have a thin cloth between the ice or cooling unit and your skin to prevent victor bite. This is especially important if you received a nerve block. Continue icing your operative site for the first 5-7 days after surgery, then as needed. Diet/Nausea/Vomiting Start by drinking clear liquids and eating crackers. If you can tolerate this, then you may resume your normal diet. If you feel nauseated or vomit, take Zofran/ondansetron (if prescribed). Please call our office if you have intractable nausea or vomiting, or, if after hours, you may go to the Emergency Room for help. Constipation Constipation is a common side effect of narcotic pain medication. If you have not had a bowel movement within 2 days after surgery, we recommend purchasing an over the counter laxative such as Milk of Magnesia, Dulcolax, or Miralax from a local pharmacy, and taking it as instructed. Call our clinic if any questions. Slings and Braces If you were placed in a sling or brace, it must be worn at all times, including sleep. You may remove your sling or brace for physical therapy, home exercises, and showering. The length of time you will be in your brace and range of motion restrictions depends on what surgery you had; these details will be reviewed at your first post-operative appointment. Nerve block The anesthesia team sometimes places a nerve block to help with post-operative pain control. This results in significant numbness and inability to move the extremity. The nerve block usually wears off in 8-12 hours, but sometimes can last up to 24 hours. Please call our office if you are still unable to move your extremity after 24 hours, unless you received a pain pump to take home. Nerve blocks typically wear off quickly, so start taking pain medication as soon as you start feeling soreness near your surgical site. Weight bearing and Range of Motion. Do not bear any weight through your operative extremity immediately after surgery. If you had upper extremity surgery, do not lift anything with that arm. If you are in a knee brace, keep it locked in place until your follow-up. We will discuss your weight bearing, range of motion, and lifting restrictions in detail at your first post-operative appointment. Continuous Passive Motion (CPM) Machine If you were prescribed a CPM machine, it will start after your first post- operative appointment, at which time we will give you instructions on the range of motion settings and duration of treatment Physical therapy You will be given a prescription for physical therapy or occupational therapy at your first post-operative appointment. Typically, patients start therapy within 1 week of surgery Wound care and showering We will inspect your wound at your first post-operative visit, and may do a dressing change at that time. Most patients will be in a water-proof dressing that is removed 14 days after surgery. It is normal to see some dried blood on the dressing. Do not remove your dressing, paper strips or sutures yourself unless you are given permission. Showering is allowed the day after surgery. Do not scrub or remove any dressings. The wound should not be submerged underwater (i.e. in a bathtub or pool) until 4 weeks after surgery NANCY stockings If you were given white stockings, these are to be worn at all times except to shower (on both legs) for the first 2 weeks after surgery. Driving You may not drive while taking narcotic pain medication or while in a cast, splint, sling or brace. You, the patient, need to make the final determination about when you are safe to drive, however, the earliest you may consider driving after surgery is below: Hand/Wrist/Elbow Surgery: 3 days Shoulder Surgery: 2 weeks Hip,/Knee/Ankle Surgery: 4 weeks Fracture repair: 6 weeks Return to Work Your return to work depends on what surgery was done and what type of work you do. Please bring any paperwork your employer needs completed to your first post-operative visit. Also, bring a description of your job duties, as this helps us to understand what risks you may face at work. Travel Avoid long distance travel (greater than 1 hour) in airplanes and cars for the first 6 weeks after surgery. If you must travel, you need to have a Doppler ultrasound done before you travel to rule out a blood clot in your legs. Follow-up You should have a follow-up appointment already scheduled 1-2 days after surgery. If not, please contact our office to make this appointment before you leave the hospital. When to call the office It is normal to have swelling and bruising in the limb that was operated on. This will improve with time. It is also normal to have fevers for the first 2 days after surgery. Reasons you should call your doctor include: Uncontrolled pain; Nausea, vomiting, or constipation that does not improve with medication; Fevers over 101.5, chills, sweats; Drainage or bleeding from the wound; Foul odor; Spreading areas of redness; Any other concerns Pending Studies at Discharge: No Stand-Alone Forms: [facility] Medications and DC Order Prescriptions: New Xarelto 10 mg Tablet 10 mg PO DAILY 21 Days Qty: 21 0RF hydrocodone-acetaminophen 5-325 mg tablet 1 tab PO Q4H MDD ongoing treatment Qty: 28 0RF diclofenac sodium 75 mg tablet,delayed release (DR/EC) 75 mg PO BID 30 Days Qty: 60 1RF Continued gabapentin 300 mg capsule 600 mg PO BID lisinopril 10 mg tablet 10 mg PO QAM multivitamin Tablet 1 tab PO QAM magnesium oxide 420 mg tablet 420 mg PO Q3D clonazepam 2 mg tablet 2 mg PO QPM pantoprazole 40 mg tablet,delayed release (DR/EC) 40 mg PO QAM zinc 50 mg Tablet 50 mg PO QAM Systane (PF) 0.4-0.3 % Dropperette 1 drp OPHTHALMIC (EYE) BID Barry Extract 1 cap PO DAILY Admission Data Admit Date/Time: 03/25/23 10:50 Attending Provider: Cayden Elizondo Admit Provider: Cayden Elizondo Primary Care Provider: Marco Pierre
== END 2023-03-26 11:43 | disposition home health service (06) ==
LOC: ASU 07:35 → 3E 07:35